=== PATIENT | female | born 1995 | race Caucasian/White ===

== ENCOUNTER 2016-05-28 18:53 | Emergency (ER) | payer SELFPAY ==
--- NOTE | 2016-05-28 20:10 | ER Document Report ---
ED Medical Screen (RME) - General Chief Complaint: Vaginal Bleeding Stated Complaint: ABDOMINAL PAIN Notes: Patient awakened this morning with lower abdominal pain and vaginal bleeding. She has heavy bleeding and passed some clots. Her last regular menstrual cycle was April 20. She has done to negative tests, one yesterday and one the day before. She's been nauseated and has vomited a couple of times. Also having some diarrhea. No UTI symptoms. No fevers. No major surgeries. TRAVEL OUTSIDE OF THE [place] IN LAST 30 DAYS: No - Related Data Allergies/Adverse Reactions: Penicillins Allergy (Verified 05/28/16 19:08) Past Medical History - General Last Menstrual Period: Renal/ Medical History: Denies: Hx Peritoneal Dialysis Physical Exam - Vital signs Vitals: Temp Pulse Resp BP Pulse Ox 97.4 F 84 18 114/82 96 05/28/16 19:10 05/28/16 19:10 05/28/16 19:10 05/28/16 19:10 05/28/16 19:10 Course - Vital Signs Vital signs: Temp Pulse Resp BP Pulse Ox 97.4 F 84 18 114/82 96 05/28/16 19:10 05/28/16 19:10 05/28/16 19:10 05/28/16 19:10 05/28/16 19:10
[2016-05-28 20:32] LABS: ABSOLUTE EOSINOPHILS # (AUTO) 0.1 10^3/uL (0.0-0.6); ABSOLUTE LYMPHOCYTES (AUTO) 1.4 10^3/uL (0.5-4.7); ABSOLUTE MONOCYTES (AUTO) 0.6 10^3/uL (0.1-1.4); ABSOLUTE NEUT (AUTO) 10.4 10^3/uL (1.7-8.2); BASOPHILS % (AUTO) 0.1 % (0-2); HEMATOCRIT 40.9 % (36.0-47.0); HEMOGLOBIN 13.6 g/dL (12.0-15.5); HGB HCT DIFFERENCE -0.1; LYMPHOCYTES % (AUTO) 11.1 % (13-45); MEAN CORPUSCULAR HEMOGLOBIN 28.1 pg (27.0-33.4); MEAN CORPUSCULAR HGB CONC 33.3 g/dL (32.0-36.0); MEAN CORPUSCULAR VOLUME 84 fl (80-97); MONOCYTES % (AUTO) 4.8 % (3-13); RED BLOOD COUNT 4.85 10^6/uL (3.72-5.28); RED CELL DISTRIBUTION WIDTH 13.2 % (11.5-14.0); WHITE BLOOD COUNT 12.5 10^3/uL (4.0-10.5)
[2016-05-28 20:42] LABS: APPEARANCE,URINE SLIGHTLY-CLOUDY; BILIRUBIN,URINE NEGATIVE (NEGATIVE); GLUCOSE, URINE NEGATIVE (NEGATIVE); KETONES,URINE NEGATIVE (NEGATIVE); LEUKOCYTE ESTERASE,URINE SMALL (NEGATIVE); NITRITE,URINE NEGATIVE (NEGATIVE); PROTEIN,URINE NEGATIVE (NEGATIVE); URINE SPECIFIC GRAVITY 1.006; UROBILINOGEN,URINE NEGATIVE mg/dL (<2.0)
[2016-05-28 20:51] LABS: ALANINE AMINOTRANSFERASE 29 U/L (5-35); ALBUMIN 4.5 g/dL (3.7-5.6); ALKALINE PHOSPHATASE 43 U/L (50-135); ANION GAP 14 (5-19); ASPARTATE AMINO TRANSFERASE 18 U/L (5-30); BILIRUBIN,DIRECT 0.1 mg/dL (0.0-0.4); BILIRUBIN,TOTAL 0.3 mg/dL (0.2-1.3); BLOOD UREA NITROGEN 10 mg/dL (7-20); CARBON DIOXIDE 23 mmol/L (22-30); CHLORIDE 106 mmol/L (98-107); CREATININE RESULT 0.57 mg/dL (0.52-1.25); GLUCOSE 115 mg/dL (75-110); LIPASE 46.4 U/L (23-300); SODIUM 142.5 mmol/L (137-145)
--- NOTE | 2016-05-28 21:32 | ER Document Report ---
ED General - General Chief Complaint: Vaginal Bleeding Stated Complaint: ABDOMINAL PAIN Notes: Patient is a 20-year-old female without past medical history, not on any form of control, last period was approximately one month ago who presents with vaginal bleeding and diffuse abdominal cramping. States that she became concerned when she bled through 1 pad in less than 1 hour. Notes that she became lightheaded after seeing the blood and felt nauseated. States she laid on the bathroom floor and called 911. No history of similar symptoms in the past. At time of arrival she denies any further lightheadedness or diaphoresis. She has not replaced the pad and is currently not wearing any kind of absorbent device for her bleeding but notes that she has not had any bleeding into her pants her on her legs. No history of dysfunctional uterine bleeding in the past. Nothing is improved or worsened her symptoms. States she overall feels much better and when she first called EMS. TRAVEL OUTSIDE OF THE [place] IN LAST 30 DAYS: No - Related Data Allergies/Adverse Reactions: Penicillins Allergy (Verified 05/28/16 19:08) Past Medical History - General Information source: Patient Last Menstrual Period: - Social History Smoking Status: Never Smoker Frequency of alcohol use: None Drug Abuse: None Lives with: Family Family History: Reviewed & Not Pertinent Patient has suicidal ideation: No Patient has homicidal ideation: No Renal/ Medical History: Denies: Hx Peritoneal Dialysis Review of Systems - Review of Systems Notes: Constitutional: Negative for fever. HENT: Negative for sore throat. Eyes: Negative for visual changes. Cardiovascular: Negative for chest pain. Positive for lightheadedness Respiratory: Negative for shortness of breath. Gastrointestinal: Negative for abdominal pain, vomiting or diarrhea. Genitourinary: Negative for dysuria. Positive for vaginal bleeding Musculoskeletal: Negative for back pain. Skin: Negative for rash. Neurological: Negative for headaches, weakness or numbness. 10 point ROS negative except as marked above and in HPI. Physical Exam - Vital signs Vitals: Temp Pulse Resp BP Pulse Ox 97.4 F 84 18 114/82 96 05/28/16 19:10 05/28/16 19:10 05/28/16 19:10 05/28/16 19:10 05/28/16 19:10 Interpretation: Normal Notes: PHYSICAL EXAMINATION: GENERAL: Well-appearing, well-nourished and in no acute distress. HEAD: Atraumatic, normocephalic. EYES: Pupils equal round and reactive to light, extraocular movements intact, sclera anicteric, conjunctiva are normal. ENT: nares patent, oropharynx clear without exudates. Moist mucous membranes. NECK: Normal range of motion, supple without lymphadenopathy LUNGS: Breath sounds clear to auscultation bilaterally and equal. No wheezes rales or rhonchi. HEART: Regular rate and rhythm without murmurs ABDOMEN: Soft, nontender, normoactive bowel sounds. No guarding, no rebound. No masses appreciated. EXTREMITIES: Normal range of motion, no pitting or edema. No cyanosis. NEUROLOGICAL: No focal neurological deficits. Moves all extremities spontaneously and on command. PSYCH: Normal mood, normal affect. SKIN: Warm, Dry, normal turgor, no rashes or lesions noted. Course - Re-evaluation Re-evalutation: 05/28/16 21:29 Presentation is most consistent with dysfunctional uterine bleeding and otherwise well-appearing patient. Her hemoglobin was within normal limits. She is not . No tachycardia or hypotension. Examination is otherwise unremarkable. She denies bleeding through more than 2 pads an hour at any point in time. No indication for ultrasound at this time based on benign exam, vitals and laboratories. No active bleeding at this time. Patient is not even wearing a tampon or pad and has no bleeding on inspection. Patient will be started on oral control pills to help discontinue the bleeding. She has been encouraged to follow-up with [facility]. At this time will discharge with return precautions and follow-up recommendations. Verbal discharge instructions given a the bedside and opportunity for questions given. Medication warnings reviewed. Patient is in agreement with this plan and has verbalized understanding of return precautions and the need for primary care follow-up in the next 24-72 hours. - Vital Signs Vital signs: Temp Pulse Resp BP Pulse Ox 98.2 F 68 20 118/62 98 05/28/16 21:53 05/28/16 21:53 05/28/16 21:53 05/28/16 21:53 05/28/16 21:53 - Laboratory Result Diagrams: 05/28/16 20:10 05/28/16 20:10 Laboratory results interpreted by me: 05/28/16 05/28/16 05/28/16 20:10 20:10 20:10 WBC 12.5 H Seg Neutrophils % 83.0 H Lymphocytes % 11.1 L Absolute Neutrophils 10.4 H Glucose 115 H Alkaline Phosphatase 43 L Urine Blood LARGE H Ur Leukocyte Esterase SMALL H Discharge - Discharge Clinical Impression: Dysfunctional uterine bleeding Condition: Good Disposition: HOME, SELF-CARE Additional Instructions: You were seen today for dysfunctional uterine bleeding. This is when you have vaginal bleeding and abdominal cramping off of your normal menstrual cycle. You have been started on control pills to help regulate your cycle and control your symptoms. You need to follow-up with [facility] or your primary care physician the next 1-3 days. Return immediately if you worsening pain, you began bleeding through more than 2 pads per hour for more than 3 hours, you pass out, have persistent vomiting, develop a fever greater than 100.4F, or any other symptoms that are concerning to you. Take the control pills in the following manner: Day 1 take 5 pills, day 2 take 4 pills, day 3 take 3 pills, day 4 take 2 pills, day 5 and every day thereafter take 1 pill. Prescriptions: Norgestimate-Ethinyl Estradiol [Sprintec 28 Day Tablet] 1 tab PO DAILY #2 packet
[2016-05-28 21:54] VITALS: BP 118/62
== END 2016-05-28 21:56 | disposition home or self-care (01) ==
LOC: ER 18:53
DX: N93.8 Other specified abnormal uterine and vaginal bleeding (principal); R10.9 Unspecified abdominal pain
CPT/HCPCS: 36415; 80053; 81001; 83690; 84703; 85025; 99284

== ENCOUNTER 2017-11-05 13:26 | Emergency (ER) | payer SELFPAY ==
[2017-11-05] MEDS ORDERED: ONDANSETRON 4 MG TAB.RAPDIS PO ONE (14:00)
[2017-11-05] MEDS ORDERED: ACETAMINOPHEN 325 MG TABLET PO ONE (14:00)
--- NOTE | 2017-11-05 14:00 | ER Document Report ---
ED General - General Chief Complaint: Pain With Urination Stated Complaint: BACK PAIN Time Seen by Provider: 11/05/17 13:40 Mode of Arrival: Ambulatory Information source: Patient Notes: 22-year-old female at approximately 10 weeks gestation presents with complaint of low back pain and dysuria. Patient states low back pain started 1 day prior to arrival. It is located in the paraspinal musculature of the lumbar spine bilaterally. Pain with urination started 2 days prior to arrival. Patient was receiving care in [place] but just moved here and has not yet to establish care. She is currently taking vitamins. She has associated nausea but denies any fever, chills, chest pain, abdominal pain, vaginal bleeding and vaginal discharge. TRAVEL OUTSIDE OF THE [place] IN LAST 30 DAYS: No - HPI Onset: Other Onset/Duration: Gradual Quality of pain: Achy Severity: Mild Associated symptoms: Nausea Exacerbated by: Movement, Walking Relieved by: Denies Similar symptoms previously: Yes Recently seen / treated by doctor: No - Related Data Allergies/Adverse Reactions: Penicillins Allergy (Verified 11/05/17 13:34) Past Medical History - General Information source: Patient, Friend - Social History Smoking Status: Former Smoker Chew tobacco use (# tins/day): No Frequency of alcohol use: None Drug Abuse: None Lives with: Spouse/Significant other Family History: Reviewed & Not Pertinent Patient has suicidal ideation: No Patient has homicidal ideation: No - Medical History Medical History: Negative Renal/ Medical History: Denies: Hx Peritoneal Dialysis Review of Systems - Review of Systems Notes: REVIEW OF SYSTEMS: CONSTITUTIONAL : Denies fever, chills, or sweats. Denies recent illness. Denies weight loss, recent hospitalizations. EENT: Denies visual changes, eye pain. Denies sore throat, oral lesions, difficulty swallowing. CARDIOVASCULAR: Denies chest pain. Denies palpitations. Denies lower extremity edema. RESPIRATORY: Denies cough. Denies shortness of breath, wheezing. GASTROINTESTINAL: Denies abdominal pain or distention. Denies vomiting, or diarrhea. Denies blood in vomitus, stools, or per rectum. Denies black, tarry stools. Denies constipation. GENITOURINARY: Denies difficulty urinating, frequency, blood in urine, or vaginal discharge. MUSCULOSKELETAL: Denies neck pain or stiffness. Denies joint pain or swelling. SKIN: Denies rash, lesions or sores. HEMATOLOGIC : Denies easy bruising or bleeding. LYMPHATIC: Denies swollen glands. NEUROLOGICAL: Denies confusion or altered mental status. Denies loss of consciousness. Denies dizziness or lightheadedness. Denies headache. Denies weakness or paralysis. Denies problems difficulty with ambulation, slurred speech. Denies sensory loss, numbness, or tingling. Denies seizures. PSYCHIATRIC: Denies anxiety or stress. Denies depression, suicidal ideation, or homicidal ideation. Denies visual or auditory hallucinations. Physical Exam - Vital signs Vitals: Temp Pulse Resp BP Pulse Ox 98.4 F 50 L 18 125/78 98 11/05/17 13:41 11/05/17 13:41 11/05/17 13:41 11/05/17 13:41 11/05/17 13:41 - Notes Notes: PHYSICAL EXAMINATION: GENERAL: Well-appearing, well-nourished and in no acute distress. HEAD: Atraumatic, normocephalic. EYES: Pupils equal round and reactive to light, extraocular movements intact, conjunctiva are normal. ENT: Nares patent, oropharynx clear without exudates. Moist mucous membranes. NECK: Normal range of motion, supple without lymphadenopathy LUNGS: Breath sounds clear to auscultation bilaterally and equal. No wheezes rales or rhonchi. HEART: Regular rate and rhythm without murmurs ABDOMEN: Soft, nontender, nondistended abdomen. No guarding, no rebound. No masses appreciated. Female : deferred Musculoskeletal: Normal range of motion, no pitting or edema. No cyanosis. Tenderness to palpation of the paraspinal musculature of the lumbar spine bilaterally. No midline tenderness. No CVA tenderness. NEUROLOGICAL: Cranial nerves grossly intact. Normal speech, normal gait. Normal sensory, motor exams PSYCH: Normal mood, normal affect. SKIN: Warm, Dry, normal turgor, no rashes or lesions noted. Course - Re-evaluation Re-evalutation: 11/06/17 12:13 Laboratory 11/05/17 13:55 Urine Color YELLOW Urine Appearance CLOUDY Urine pH 8.0 Ur Specific [place] 1.012 Urine Protein 30 H Urine Glucose (UA) NEGATIVE Urine Ketones NEGATIVE Urine Blood MODERATE H Urine Nitrite NEGATIVE Urine Bilirubin NEGATIVE Urine Urobilinogen NEGATIVE Ur Leukocyte Esterase MODERATE H Urine WBC (Auto) 130 Urine RBC (Auto) >182 Urine WBC Clumps OCC Squamous Epi Cells Auto 2 Urine Mucus (Auto) OCC Urine Ascorbic Acid NEGATIVE Urine HCG, Qual POSITIVE H . 11/06/17 12:14 22-year-old female at approximately 10 weeks gestation presents with complaint of low back pain and dysuria. Patient states low back pain started 1 day prior to arrival. It is located in the paraspinal musculature of the lumbar spine bilaterally. Pain with urination started 2 days prior to arrival. Vital signs reviewed and within normal limits upon arrival. Patient's exam significant for tenderness of the paraspinal musculature bilaterally. She has no CVA tenderness. Urinalysis consistent with urinary tract infection. Patient denies any abdominal pain or vaginal bleeding. Patient provided her first dose of Macrobid in the department. She will be discharged home with a prescription for Macrobid for 7 days. I have given her a referral to women's health clinic and the department of health for further care. Patient was evaluated and treated as appropriate for the patient's presenting symptoms and complaint, with consideration of any critical or life threatening conditions that may be associated with their obtained history and exam as noted above. All results were discussed with patient and... Patient provided the opportunity to ask questions, and express concerns. Patient was educated on treatments based on their presumed diagnosis as noted above. At this time we will discharge the patient with return precautions and follow-up recommendations. Verbal discharge instructions given a the bedside. Medication warnings reviewed. Patient is in agreement with this plan and has verbalized understanding of return precautions. After careful consideration I feel that that patient can be safely discharged from the emergency department, they were advised to followup with a primary care physician in 2-3 days. Dictation on this chart was performed using voice recognition software and may result in unintended grammatical, spelling, syntax or errors. - Vital Signs Vital signs: Temp Pulse Resp BP Pulse Ox 98.0 F 59 L 16 114/69 100 11/05/17 14:48 11/05/17 14:48 11/05/17 14:48 11/05/17 14:48 11/05/17 14:48 - Laboratory Laboratory results interpreted by me: 11/05/17 13:55 Urine Protein 30 H Urine Blood MODERATE H Ur Leukocyte Esterase MODERATE H Urine HCG, Qual POSITIVE H Discharge - Discharge Clinical Impression: First trimester Back pain Qualifiers: Back pain location: low back pain Chronicity: acute Back pain laterality: bilateral Sciatica presence: without sciatica Qualified Code(s): M54.5 - Low back pain UTI (urinary tract infection) Qualifiers: Urinary tract infection type: acute cystitis Hematuria presence: with hematuria Qualified Code(s): N30.01 - Acute cystitis with hematuria Condition: Good Disposition: HOME, SELF-CARE Instructions: Low Back Pain ([facility]), Urinary Tract Infection ([facility]) Additional Instructions: You are . care is best started as early in as possible. If you're unsure about continuing this , you should discuss this with your physician or with [facility] at [facility]. You should take only medications approved by your physician. Acetaminophen can safely be taken for minor pains. As a rule, medication for chronic conditions such as asthma or seizures can safely be continued. You should discuss with the physician every medicine you take. Any regular exercise program can be continued. Talk to your physician, however, before engaging in competitive or demanding sports. Alcohol, smoking, and "street drugs" are dangerous to your baby. Cocaine is especially dangerous. Don't use any illicit drugs! Prescriptions: Acetaminophen [Tylenol 325 mg Tablet] 650 mg PO Q6HP PRN #20 tablet PRN Reason: Nitrofurantoin Monohyd/M-Cryst [Macrobid 100 mg Capsule] 1 tab PO BID #20 capsule Referrals: NOEMI WHITING MD [ACTIVE STAFF] - Follow up in 3-5 days
[2017-11-05 14:32] LABS: APPEARANCE,URINE CLOUDY; BILIRUBIN,URINE NEGATIVE (NEGATIVE); COLOR,URINE YELLOW; GLUCOSE, URINE NEGATIVE (NEGATIVE); KETONES,URINE NEGATIVE (NEGATIVE); LEUKOCYTE ESTERASE,URINE MODERATE (NEGATIVE); NITRITE,URINE NEGATIVE (NEGATIVE); PROTEIN,URINE 30 mg/dL (NEGATIVE); URINE SPECIFIC GRAVITY 1.012; UROBILINOGEN,URINE NEGATIVE mg/dL (<2.0)
[2017-11-05] MEDS ORDERED: NITROFURANTOIN MONOHYD/M-CRYST 100 MG CAPSULE PO ONE (14:42)
[2017-11-05 14:49] VITALS: BP 114/69
== END 2017-11-05 14:54 | disposition home or self-care (01) ==
LOC: ER 13:26
DX: O23.11 Infections of bladder in pregnancy, first trimester (principal); O26.891 Other specified pregnancy related conditions, first trimester; R11.0 Nausea; R31.9 Hematuria, unspecified; O99.89 Other specified diseases and conditions complicating pregnancy, childbirth and the puerperium; M54.5 Low back pain; Z3A.00 Weeks of gestation of pregnancy not specified; Z87.891 Personal history of nicotine dependence; Z88.0 Allergy status to penicillin; Z79.899 Other long term (current) drug therapy
CPT/HCPCS: 99283; 81025; 81001; S0119; J8499